=== PATIENT | male | born 1985 | race Caucasian/White ===

== ENCOUNTER 2018-09-24 15:37 | Emergency (ER) | payer MEDICAID ==
[~2018-09-24] VITALS: Ht 162.6 cm; Wt 86.0 kg
[2018-09-24 15:41] VITALS: Ht 162.6 cm; Wt 86.0 kg
[2018-09-24] MEDS ORDERED: KETOROLAC 30 MG INJ IM STA (17:03)
[2018-09-24] MEDS ORDERED: HYDR-4011 PO (19:51)
[2018-09-24] MEDS ORDERED: COLC0.6T6 PO (19:52)
[2018-09-24] MEDS ORDERED: IBUP-1545 PO (19:52)
--- NOTE | 2018-09-24 19:55 | ERD ---
ER Documentation Chief Complaint Chief Complaint LEFT ELBOW PAIN WITH UNKNOWN ORIGIN HPI 32-year-old male presents with right sided elbow pain that began 2 days ago. No trauma. He has limited range of motion secondary to the pain. He states the arm is swollen. Not taking any medications. No fevers. No numbness or or tingling. States this is happened once before and he took diclofenac with good relief. ROS All systems reviewed and are negative except as per history of present illness. Medications Home Meds Active Scripts Ibuprofen* (Ibuprofen*) 800 Mg Tab, 800 MG PO Q6H PRN for PAIN, #30 TAB Prov:RONY LONGORIA PA-C 09/24/18 Colchicine* (Colcrys*) 0.6 Mg Tablet, 0.6 MG PO DAILY, #3 TAB Prov:RONY LONGORIA PA-C 09/24/18 Hydrocodone/Acetaminophen (Aspers 5-325 Tablet) 1 Each Tablet, 1 EACH PO Q6, #15 TAB Prov:RONY LONGORIA PA-C 09/24/18 PMhx/Soc Hx Alcohol Use: No Hx Substance Use: No Hx Tobacco Use: No Smoking Status: Never smoker FmHx Family History: No diabetes Physical Exam Vitals Vital Signs Date Temp Pulse Resp B/P (MAP) Pulse Ox O2 O2 Flow FiO2 Time Delivery Rate 09/24/18 100.5 98 16 151/89 96 15:41 (109) Physical Exam Const: No acute distress Head: Atraumatic Eyes: Normal Conjunctiva ENT: Normal External Ears, Nose and Mouth. Neck: Full range of motion. No meningismus. Resp: Clear to auscultation bilaterally Cardio: Regular rate and rhythm, no murmurs Right elbow: Limited range of motion secondary to the pain, tenderness and warmth over the olecranon, no erythema, sensation to light touch is intact Result Diagram: 09/24/18 7720 Results 24 hrs Laboratory Tests Test 09/24/18 17:17 White Blood Count 11.5 10^3/ul Red Blood Count 5.28 10^6/ul Hemoglobin 15.5 g/dl Hematocrit 46.3 % Mean Corpuscular Volume 87.7 fl Mean Corpuscular Hemoglobin 29.4 pg Mean Corpuscular Hemoglobin Concent 33.5 g/dl Red Cell Distribution Width 12.5 % Platelet Count 235 10^3/UL Mean Platelet Volume 9.9 fl Immature Granulocytes % 0.300 % Neutrophils % 70.0 % Lymphocytes % 21.5 % Monocytes % 7.8 % Eosinophils % 0.2 % Basophils % 0.2 % Nucleated Red Blood Cells % 0.0 /100WBC Immature Granulocytes # 0.030 10^3/ul Neutrophils # 8.1 10^3/ul Lymphocytes # 2.5 10^3/ul Monocytes # 0.9 10^3/ul Eosinophils # 0.0 10^3/ul Basophils # 0.0 10^3/ul Nucleated Red Blood Cells # 0.0 10^3/ul Erythrocyte Sedimentation Rate 18 mm/Hr Uric Acid 9.2 mg/dl Current Medications Medications Dose Sig/Ella Start Time Status Last (Trade) Ordered Route PRN Stop Time Admin Dose Reason Admin Ketorolac 30 mg ONCE STAT 09/24/18 DC 09/24/18 Tromethamine IM 17:03 09/24/18 17:13 (Toradol) 17:06 Procedures/MDM Patient has right elbow pain. In triage his temperature was noted to be febrile however I rechecked it in the exam room twice and he had no fever. Findings are consistent with gout as his uric acid is elevated. He is discharged with colchicine ibProfen and Aspers. Patient counseled regarding my diagnostic impression and care plan. Prior to discharge all questions answered. Pt agrees with treatment plan and understands strict return precautions. Pt is instructed to follow up with primary care provider within 24-48 hours. Precautionary instructions provided including instructions to return to the ER if not improving or for any worsening or changing symptoms or concerns. Departure Diagnosis: Primary Impression: Gout Condition: Stable Patient Instructions: Gouty Arthritis, Gout Diet Additional Instructions: Llame al doctor PEYMAN y joselo josie JAIME PARA DENTRO DE 1-2 GOODRICH.Dgale a la secretaria que nosotros le instruimos hacer esta jaime.Avise o llame si menjivar condicin se empeora antes de la jaime. Regresa aqui si peor o no mejor. RONY LONGORIA PA-C Sep 24, 2018 19:55
[2018-09-24 20:05] VITALS: BP 154/91; PULSE 71; RESP 15
== END 2018-09-24 20:05 | disposition home or self-care (01) ==
LOC: FTE 15:37
DX: M10.9 Gout, unspecified (principal)
CPT/HCPCS: 73080; 84560; 85025; 85651; 96372; J1885; Z7502

== ENCOUNTER 2019-03-20 09:44 | Emergency (ER) | payer MEDICAID ==
[~2019-03-20] VITALS: Ht 157.5 cm; Wt 81.2 kg
[~2019-03-20 09:44] MED LIST: COLC0.6T6 PO; HYDR-4011 PO; IBUP-1542 PO; IBUP-1545 PO
[2019-03-20 10:09] VITALS: BP 147/97; PULSE 73; RESP 18; Ht 157.5 cm; Wt 81.2 kg
[2019-03-20] MEDS ORDERED: IBUPROFEN 600 MG TAB PO ONE (11:30)
== END 2019-03-20 13:15 | disposition home or self-care (01) ==
LOC: FTE 09:44
DX: M25.571 Pain in right ankle and joints of right foot (principal)
CPT/HCPCS: 73610; 73630; Z7502; Z7610